=== PATIENT | female | born 1965 | race Hispanic/Latino ===

== ENCOUNTER 2017-08-24 13:46 | Emergency (ER) | payer MEDICAID ==
[2017-08-24 13:46] VITALS: BMI 22.3
[2017-08-24 14:29] VITALS: BP 104/59; PULSE 72; RESP 20; O2SAT 99
--- NOTE | 2017-08-24 14:42 | ED PDOC ---
Lower Extremity Pain/Injury Time Seen by Provider: 08/24/17 14:35 Chief Complaint (Nursing): Lower Extremity Problem/Injury Chief Complaint (Provider): Right Ankle Pain History Per: Patient History/Exam Limitations: no limitations Onset/Duration Of Symptoms: Days (x2 weeks) Current Symptoms Are (Timing): Still Present Additional Complaint(s): 52 y/o female presents for evaluation of right ankle pain x2 weeks. Patient reports she had surgery to her right ankle 1.5 years ago performed at this facility by Dr. Valenzuela. She states 2 weeks ago she began to feel irritation to her left ankle and scratched it, resulting in a wound to the area. She reports she has since had irritation, purulent discharge, and a subjective fever. Denies any acute trauma. PMD: None Past Medical History Reviewed: Historical Data, Nursing Documentation, Vital Signs Vital Signs: Last Vital Signs Temp 98.3 F 08/24/17 14:28 Pulse 72 08/24/17 14:28 Resp 20 08/24/17 14:28 BP 104/59 L 08/24/17 14:28 Pulse Ox 99 08/24/17 14:28 - Medical History PMH: Anxiety - Surgical History Surgical History: Appendectomy, Back Surgery Other surgeries: Right ankle surgery, left hip replacement - Family History Family History: States: Unknown Family Hx - Living Arrangements Living Arrangements: With Family - Social History Current smoker - smoking cessation education provided: No Alcohol: None Drugs: Denies - Home Medications Home Medications: Ambulatory Orders Medication Instructions Recorded Alprazolam [Xanax] 1 tab PO HS 02/15/14 Carisoprodol [Soma] 1 tab PO TID PRN 02/15/14 Diclofenac Sodium [Voltaren] 1 tab PO BID 02/15/14 Ferrous Sulfate 1 tab PO DAILY 02/15/14 Loratadine 1 tab PO DAILY 02/15/14 Metoprolol Tartrate [Lopressor] 1 tab PO DAILY 02/15/14 Oxycodone Hydrochloride [Oxycodone] 1 tab PO Q6H PRN 02/15/14 Docusate [Colace] 100 mg PO PRN PRN #30 cap 03/15/16 Enoxaparin [Lovenox] 40 mg IV DAILY #7 syr 03/15/16 Methadone [Methadone HCl] 10 mg PO Q8 #21 tab 01/12/17 Sennosides [Senokot] 8.6 mg PO BIDPC #30 tablet 03/15/16 Sertraline [Zoloft] 25 mg PO DAILY #30 tab 03/15/16 Amoxicillin/Clavulanate [Augmentin 1 tab PO BID #14 tab 08/24/17 875 MG-125 MG] Clindamycin [Cleocin] 300 mg PO QID #28 cap 08/24/17 Ibuprofen [Motrin Tab] 800 mg PO Q8 PRN #20 tab 08/24/17 - Allergies Allergies/Adverse Reactions: Allergies Allergy/AdvReac Type Severity Reaction Status Date / Time No Known Allergies Allergy Verified 11/12/15 17:15 Wells Criteria for PE - Wells Criteria for Pulmonary Embolism Clinical Signs and Symptoms of DVT: No P.E is #1 Diagnosis, or Equally Likely: No Heart Rate >100: No Immobilization at least 3 days;Surgery previous 4 weeks: No Previous, objectively diagnosed PE or DVT: No Hemoptysis: No Malignancy w/treatment within 6 months, or palliative: No Total Score: 0 Review of Systems ROS Statement: Except As Marked, All Systems Reviewed And Found Negative Constitutional: Positive for: Fever (subjective) Musculoskeletal: Positive for: Other (right ankle pain) Skin: Positive for: Lesions (right ankle wound) Physical Exam - Reviewed Nursing Documentation Reviewed: Yes Vital Signs Reviewed: Yes - Physical Exam Appears: Positive for: Well, Non-toxic, No Acute Distress Skin: Positive for: Normal Color. Negative for: Rash Eye Exam: Positive for: Normal appearance Extremity: Positive for: Other (2 cm superfiial pustular lesion to right lateral ankle with localized erythema, no erythematous streaking, mild purulent discharge noted) Neurologic/Psych: Positive for: Alert, Oriented - ECG O2 Sat by Pulse Oximetry: 99 (RA) Pulse Ox Interpretation: Normal Medical Decision Making Medical Decision Makin:43 Impression: 52 y/o female with abscess to right ankle Plan: Patient will be discharged with Rx for Clindamycin, augmentin and Motrin. Advised to follow up with podiatry clinic within 2-3 days. Patient instructed to return for any new or worsening symptoms. Scribe Attestation: Documented by Aristeo Nguyen, acting as a scribe for Nora Pearson PA-C. Provider Scribe Attestation: All medical record entries made by the scribe were at my direction and personally dictated by me. I have reviewed the chart and agree that the record accurately reflects my personal performance of the history, physical exam, medical decision making, and the department course for this patient. I have also personally directed, reviewed, and agree with the discharge instructions and disposition. Disposition - Clinical Impression Clinical Impression: Abscess - Patient ED Disposition Is Patient to be Admitted: No Counseled Patient/Family Regarding: Diagnosis, Need For Followup, Rx Given - Disposition Referrals: Podiatry Clinic [Outside] Disposition: Routine/Home Disposition Time: 14:43 Condition: STABLE Additional Instructions: APPLY WARM COMPRESSES WITH EPSOM SALTS TO AFFECTED AREA. TAKE RX MEDS DIRECTED. DO NOT APPLY ANY TOPICAL CREAMS. FOLLOW UP WITH PODIATRY CLINIC IN 2 -3 DAYS. Prescriptions: Amoxicillin/Clavulanate [Augmentin 875 MG-125 MG] 1 tab PO BID #14 tab Clindamycin [Cleocin] 300 mg PO QID #28 cap Ibuprofen [Motrin Tab] 800 mg PO Q8 PRN #20 tab PRN Reason: Pain, Moderate (4-7) Instructions: Skin Abscess Forms: [employer] ([employer])
[2017-08-24 15:08] VITALS: TEMP 97.8
== END 2017-08-24 15:07 | disposition home or self-care (01) ==
LOC: H.ER 13:46
DX: L02.415 Cutaneous abscess of right lower limb (principal); Z96.642 Presence of left artificial hip joint

== ENCOUNTER 2017-09-01 23:27 | Emergency (ER) | payer MEDICAID ==
[2017-09-01 23:28] VITALS: BMI 22.3
[2017-09-01 23:32] VITALS: RESP 18; O2SAT 98
[2017-09-01] MEDS ORDERED: Sodium Chloride 0.9% 1,000 ML IV STA (23:48)
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
[2017-09-02 00:38] LABS: BASO % 0.7 % (0.0-2.0); EOS # 0.2 K/uL (0.0-0.7); EOS % 4.1 % (0.0-4.0); HEMOGLOBIN 10.7 g/dL (12.0-16.0); LYMPH # 1.1 K/uL (1.0-4.3); LYMPH % 20.5 % (20.0-40.0); MEAN CELL VOLUME 87.6 fl (81.0-99.0); MEAN CORPUSCULAR HEMOGLOBIN 29.2 pg (27.0-31.0); MEAN CORPUSCULAR HGB CONC 33.3 g/dL (33.0-37.0); MONO # 0.5 K/uL (0.0-0.8); MONO % 9.9 % (0.0-10.0); NEUT # 3.5 K/uL (1.8-7.0); NEUT % 64.8 % (50.0-75.0); NRBC % 0.1 % (0.0-0.0); RBC 3.67 Mil/uL (3.80-5.20); RED CELL DISTRIBUTION WIDTH 14.9 % (11.5-14.5); WHITE BLOOD COUNT 5.5 K/uL (4.8-10.8)
[2017-09-02 00:41] LABS: ALB/GLOB RATIO 1.2 (1.0-2.1); ALBUMIN 4.1 g/dL (3.5-5.0); ALT/SGPT 29 U/L (9-52); AST/SGOT 33 U/L (14-36); BLOOD UREA NITROGEN 12 mg/dl (7-17); CALCIUM 8.7 mg/dL (8.4-10.2); GFR AFRICAN-AMERICAN > 60; GFR NON-AFRICAN AMERICAN > 60
[2017-09-02 00:52] LABS: BARBITURATES, UR NEGATIVE (NEGATIVE); BENZODIAZEPINES, UR POSITIVE (NEGATIVE); OPIATES, UR POSITIVE (NEGATIVE); PHENCYCLIDINE, UR NEGATIVE (NEGATIVE)
[2017-09-02 06:25] VITALS: BP 134/70; PULSE 88; TEMP 98.2
--- NOTE | 2017-09-02 16:49 | CARD ---
APPROVED REPORT EKG Measurement Heart [id number] <Conclusion> Normal sinus rhythm Normal ECG
== END 2017-09-02 05:58 | disposition home or self-care (01) ==
LOC: H.ER 23:27
DX: T40.1X1A Poisoning by heroin, accidental (unintentional), initial encounter (principal); Z59.0 Homelessness; F41.9 Anxiety disorder, unspecified; G89.29 Other chronic pain